=== PATIENT | female | born 1950 | race Caucasian/White ===

== ENCOUNTER 2025-04-05 10:58 | Outpatient (CLI) | payer MEDICARE, BC ==
--- NOTE | 2025-04-05 12:06 | RADIOLOGY REPORT ---
CLINICAL INDICATION: PAIN IN FINGER LEFT HAND TECHNIQUE: 3 radiographic views of the left hand were obtained. Comparison: None FINDINGS/IMPRESSION: There is no evidence of acute fracture or dislocation. The visualized joint space is well maintained. The alignment is anatomical. There is no radiopaque foreign body.
--- NOTE | 2025-04-05 12:07 | RADIOLOGY REPORT ---
CLINICAL INDICATION: PAIN IN FINGER LEFT HAND TECHNIQUE: 3 radiographic views of the left wrist were obtained. Comparison: None FINDINGS/IMPRESSION: There is no evidence of acute fracture or dislocation. The visualized joint space is well maintained. The alignment is anatomical. There is no radiopaque foreign body.
== END 2025-04-05 23:59 | disposition home or self-care (01) ==
LOC: RAD 10:58
PROVIDERS: ATTEND Nurse Practitioner Family
DX: M79.645 Pain in left finger(s) (principal)
CPT/HCPCS: 73110; 73130